=== PATIENT | female | born 1990 | race Caucasian/White ===

== ENCOUNTER 2019-02-21 04:20 | Emergency (ER) | payer OTHER ==
[~2019-02-21] VITALS: Ht 154.9 cm; Wt 95.3 kg
[~2019-02-21 04:20] MED LIST: CIPRO250 MG PO; LAC PO; NORCO1 TA2 PO
[2019-02-21 04:24] VITALS: Ht 154.9 cm; Wt 95.3 kg
[2019-02-21 05:22] VITALS: BP 132/93
== END 2019-02-21 05:22 | disposition home or self-care (01) ==
LOC: ED 04:20
DX: N39.0 Urinary tract infection, site not specified (principal); J45.909 Unspecified asthma, uncomplicated; Z87.19 Personal history of other diseases of the digestive system

== ENCOUNTER 2019-05-07 05:41 | Emergency (ER) | payer OTHER ==
[~2019-05-07] VITALS: Ht 154.9 cm; Wt 95.8 kg
[2019-05-07 05:53] VITALS: Ht 154.9 cm; Wt 95.8 kg
[2019-05-07 07:08] LABS: BASOPHIL % 1.1 % (0-2); PLATELET COUNT 365 x10^3mcL (130-400); RED CELL DISTRIBUTION WIDTH 13.4 % (11.5-14.5)
[2019-05-07 07:23] LABS: CARBON DIOXIDE 29.2 mmol/L (21-32); CHLORIDE SERUM 103 mmol/L (98-107); CREATININE SERUM 0.5 mg/dL (0.6-1.0); GFR1 > 60 mL/min; GLUCOSE SERUM 101 mg/dL (74-106); POTASSIUM SERUM 4.1 mmol/L (3.5-5.1); SODIUM SERUM 138 mmol/L (136-145)
[2019-05-07 07:27] LABS: ALKALINE PHOSPHATASE 72 U/L (46-116); ALT/SGPT 22 U/L (14-59); AMYLASE 50 U/L (25-115); AST/SGOT 15 U/L (15-37); BILIRUBIN TOTAL 0.3 mg/dL (0.20-1.00); TOTAL PROTEIN, SERUM 7.8 g/dL (6.4-8.2)
[2019-05-07 08:36] VITALS: BP 108/73
[2019-05-07 09:20] LABS: CALCIUM 9.2 mg/dL (8.5-10.1); LIPASE 146 IU/L (73-393)
[2019-05-07 09:23] LABS: ALBUMIN 3.7 g/dL (3.4-5.0)
== END 2019-05-07 08:36 | disposition home or self-care (01) ==
LOC: ED 05:41
PROVIDERS: Specialist
DX: N83.202 Unspecified ovarian cyst, left side (principal); N20.0 Calculus of kidney; J45.909 Unspecified asthma, uncomplicated; Z90.49 Acquired absence of other specified parts of digestive tract; Z98.890 Other specified postprocedural states
CPT/HCPCS: J1885; J2405; J3010; J7030

== ENCOUNTER 2019-12-23 06:03 | Emergency (ER) | payer OTHER ==
[~2019-12-23] VITALS: Ht 154.9 cm; Wt 99.1 kg
[2019-12-23 06:14] VITALS: Ht 154.9 cm; Wt 99.1 kg
[2019-12-23 07:07] LABS: CALCIUM 8.6 mg/dL (8.5-10.1); CARBON DIOXIDE 26.3 mmol/L (21-32); CHLORIDE SERUM 103 mmol/L (98-107); CREATININE SERUM 0.6 mg/dL (0.6-1.0); GFR1 > 60 mL/min; GLUCOSE SERUM 108 mg/dL (74-106); POTASSIUM SERUM 3.7 mmol/L (3.5-5.1); SODIUM SERUM 139 mmol/L (136-145)
[2019-12-23 07:27] LABS: ALBUMIN 3.5 g/dL (3.4-5.0); ALKALINE PHOSPHATASE 67 U/L (46-116); ALT/SGPT 29 U/L (14-59); AST/SGOT 11 U/L (15-37); BASOPHIL % 0.2 % (0-2); BILIRUBIN TOTAL 0.3 mg/dL (0.20-1.00); LIPASE 159 IU/L (73-393); PLATELET COUNT 343 x10^3mcL (130-400); TOTAL PROTEIN, SERUM 7.4 g/dL (6.4-8.2)
[2019-12-23 08:11] VITALS: BP 111/70
== END 2019-12-23 08:11 | disposition home or self-care (01) ==
LOC: ED 06:03
PROVIDERS: Emergency Medicine
DX: N20.0 Calculus of kidney (principal); J45.909 Unspecified asthma, uncomplicated; Z90.49 Acquired absence of other specified parts of digestive tract; Z98.890 Other specified postprocedural states
CPT/HCPCS: J1885; J2270; J2405

== ENCOUNTER 2020-02-26 07:30 | Emergency (ER) | payer OTHER ==
[2020-02-26 07:41] VITALS: Ht 154.9 cm
[2020-02-26 08:40] LABS: BASOPHIL % 0.2 % (0-2); PLATELET COUNT 359 x10^3mcL (130-400); RED CELL DISTRIBUTION WIDTH 13.3 % (11.5-14.5)
[2020-02-26 08:46] LABS: microscopic required? YES; urine erythrocyte 3+ (NEGATIVE)
[2020-02-26 08:51] LABS: CALCIUM 8.9 mg/dL (8.5-10.1); CARBON DIOXIDE 30.4 mmol/L (21-32); CHLORIDE SERUM 103 mmol/L (98-107); CREATININE SERUM 0.6 mg/dL (0.6-1.0); GFR1 > 60 mL/min; GLUCOSE SERUM 118 mg/dL (74-106); SODIUM SERUM 138 mmol/L (136-145)
[2020-02-26 08:59] LABS: ALBUMIN 3.5 g/dL (3.4-5.0); ALKALINE PHOSPHATASE 69 U/L (46-116); ALT/SGPT 26 U/L (14-59); AST/SGOT 11 U/L (15-37); BILIRUBIN TOTAL 0.3 mg/dL (0.20-1.00); LIPASE 112 IU/L (73-393); TOTAL PROTEIN, SERUM 7.4 g/dL (6.4-8.2)
[2020-02-26 12:10] VITALS: BP 136/78
== END 2020-02-26 12:10 | disposition home or self-care (01) ==
LOC: ED 07:30
DX: N20.0 Calculus of kidney (principal); N39.0 Urinary tract infection, site not specified; J45.909 Unspecified asthma, uncomplicated; Z90.49 Acquired absence of other specified parts of digestive tract; Z98.890 Other specified postprocedural states
CPT/HCPCS: J0696; J1885; J2405

== ENCOUNTER 2020-03-29 23:09 | Inpatient (IN) | payer OTHER ==
[~2020-03-29] VITALS: Ht 157.5 cm; Wt 96.6 kg
[2020-03-29 23:16] VITALS: Ht 157.5 cm; Wt 96.6 kg
[2020-03-30 01:07] LABS: BASOPHIL % 0.1 % (0-2); PLATELET COUNT 354 x10^3mcL (130-400); RED CELL DISTRIBUTION WIDTH 13.4 % (11.5-14.5)
[2020-03-30 01:17] LABS: CALCIUM 9.3 mg/dL (8.5-10.1); CARBON DIOXIDE 29.6 mmol/L (21-32); CHLORIDE SERUM 101 mmol/L (98-107); CREATININE SERUM 0.6 mg/dL (0.6-1.0); GFR1 > 60 mL/min; GLUCOSE SERUM 95 mg/dL (74-106); POTASSIUM SERUM 3.9 mmol/L (3.5-5.1); SODIUM SERUM 136 mmol/L (136-145)
[2020-03-30 01:22] LABS: ALBUMIN 3.8 g/dL (3.4-5.0); ALKALINE PHOSPHATASE 76 U/L (46-116); ALT/SGPT 67 U/L (14-59); AST/SGOT 20 U/L (15-37); BILIRUBIN TOTAL 0.38 mg/dL (0.20-1.00); TOTAL PROTEIN, SERUM 7.9 g/dL (6.4-8.2)
[2020-03-30 03:42] VITALS: BP 131/87
[2020-03-30 04:39] LABS: UA SPECIFIC GRAVITY 1.015 (1.005-1.035); microscopic required? YES; urine erythrocyte 3+ (NEGATIVE)
[2020-03-30 04:47] LABS: AMPHETAMINE QUAL UR NONE DETECTED (See below)
[2020-03-30 07:52] LABS: CALCIUM 8.6 mg/dL (8.5-10.1); CARBON DIOXIDE 26.9 mmol/L (21-32); CHLORIDE SERUM 103 mmol/L (98-107); CREATININE SERUM 0.6 mg/dL (0.6-1.0); GFR1 > 60 mL/min; GLUCOSE SERUM 85 mg/dL (74-106); POTASSIUM SERUM 3.7 mmol/L (3.5-5.1); SODIUM SERUM 137 mmol/L (136-145)
[2020-03-30 08:05] LABS: BASOPHIL % 0.4 % (0-2); PLATELET COUNT 265 x10^3mcL (130-400)
[2020-03-30 08:06] LABS: RED CELL DISTRIBUTION WIDTH 20.7 % (11.5-14.5)
[2020-03-30 08:07] LABS: CHOLESTEROL/HDL RATIO 3.4
[2020-03-30 08:14] VITALS: BP 112/63
[2020-03-30 12:40] VITALS: BP 101/58
[2020-03-30 16:30] VITALS: BP 93/45
[2020-03-30 21:55] VITALS: BP 95/55
[2020-03-31 05:08] VITALS: BP 101/57
[2020-03-31 07:18] LABS: ALKALINE PHOSPHATASE 59 U/L (46-116); ALT/SGPT 48 U/L (14-59); AST/SGOT 20 U/L (15-37); BILIRUBIN TOTAL 0.6 mg/dL (0.20-1.00); CALCIUM 8.3 mg/dL (8.5-10.1); CARBON DIOXIDE 27.1 mmol/L (21-32); CHLORIDE SERUM 105 mmol/L (98-107); CREATININE SERUM 0.6 mg/dL (0.6-1.0); GFR1 > 60 mL/min; GLUCOSE SERUM 65 mg/dL (74-106); POTASSIUM SERUM 3.7 mmol/L (3.5-5.1); SODIUM SERUM 138 mmol/L (136-145); TOTAL PROTEIN, SERUM 6.6 g/dL (6.4-8.2)
[2020-03-31 07:22] LABS: ALBUMIN 3.1 g/dL (3.4-5.0)
[2020-03-31 07:23] LABS: BASOPHIL % 0.1 % (0-2); PLATELET COUNT 281 x10^3mcL (130-400); RED CELL DISTRIBUTION WIDTH 13.4 % (11.5-14.5)
[2020-03-31 09:00] VITALS: BP 103/53
[2020-03-31 16:41] VITALS: BP 112/73
[2020-03-31 20:48] VITALS: BP 104/63
[2020-04-01 05:54] VITALS: BP 119/71
[2020-04-01 05:59] VITALS: BP 96/59
[2020-04-01 06:39] LABS: BASOPHIL % 0.3 % (0-2); PLATELET COUNT 291 x10^3mcL (130-400); RED CELL DISTRIBUTION WIDTH 13.5 % (11.5-14.5)
[2020-04-01 07:11] LABS: ALKALINE PHOSPHATASE 60 U/L (46-116); ALT/SGPT 56 U/L (14-59); AST/SGOT 26 U/L (15-37); BILIRUBIN TOTAL 0.5 mg/dL (0.20-1.00); CALCIUM 8.7 mg/dL (8.5-10.1); CARBON DIOXIDE 28.7 mmol/L (21-32); CHLORIDE SERUM 102 mmol/L (98-107); CREATININE SERUM 0.5 mg/dL (0.6-1.0); GFR1 > 60 mL/min; GLUCOSE SERUM 78 mg/dL (74-106); POTASSIUM SERUM 3.6 mmol/L (3.5-5.1); SODIUM SERUM 136 mmol/L (136-145); TOTAL PROTEIN, SERUM 6.7 g/dL (6.4-8.2)
[2020-04-01 07:24] LABS: ALBUMIN 3.1 g/dL (3.4-5.0)
[2020-04-01 08:01] VITALS: BP 103/68
[2020-04-01 12:30] VITALS: BP 106/61
[2020-04-01] MEDS ORDERED: APAP/HYDROCODON1 T13 PO (15:33)
[2020-04-01] MEDS ORDERED: DIT5 PO (15:37)
[2020-04-01 16:03] VITALS: BP 106/61
[2020-04-01 16:12] VITALS: BP 103/62
== END 2020-04-01 16:34 | disposition home or self-care (01) | DRG 466 ==
LOC: ED 23:09 → MU 03-30 01:46
PROVIDERS: Emergency Medicine; Urology; ADMIT Family Medicine; ATTEND Family Medicine
PROC: BT1D1ZZ Fluoroscopy of Right Kidney, Ureter and Bladder using Low Osmolar Contrast (ICD-10-PCS; 2020-03-31)
PROC: 0T768DZ Dilation of Right Ureter with Intraluminal Device, Via Natural or Artificial Opening Endoscopic (ICD-10-PCS; principal; 2020-03-31 14:00)
DX: T83.123A Displacement of other urinary stents, initial encounter (principal); N13.30 Unspecified hydronephrosis; J45.909 Unspecified asthma, uncomplicated; D72.829 Elevated white blood cell count, unspecified; M45.9 Ankylosing spondylitis of unspecified sites in spine; Y83.8 Other surgical procedures as the cause of abnormal reaction of the patient, or of later complication, without mention of misadventure at the time of the procedure; Z20.828 Contact with and (suspected) exposure to other viral communicable diseases; Y73.8 Miscellaneous gastroenterology and urology devices associated with adverse incidents, not elsewhere classified; Z98.891 History of uterine scar from previous surgery; Z90.49 Acquired absence of other specified parts of digestive tract; Z87.442 Personal history of urinary calculi; Z83.3 Family history of diabetes mellitus; Z84.89 Family history of other specified conditions; Y92.89 Other specified places as the place of occurrence of the external cause; Z79.899 Other long term (current) drug therapy; Z79.01 Long term (current) use of anticoagulants; Z79.891 Long term (current) use of opiate analgesic
CPT/HCPCS: 82962; 83880; C2625; C9113; G0378; J0696; J1885; J2250; J3010; J3490; J7030; Q0092; Q9967

== ENCOUNTER 2020-08-28 17:28 | Emergency (ER) | payer OTHER ==
[~2020-08-28] VITALS: Ht 154.9 cm; Wt 93.9 kg
[~2020-08-28 17:28] MED LIST changes: +APAP/HYDROCODON1 T13 PO; +DIT5 PO
[2020-08-28 17:37] VITALS: Ht 154.9 cm; Wt 93.9 kg
[2020-08-28 20:00] VITALS: BP 156/87
== END 2020-08-28 20:00 | disposition home or self-care (01) ==
LOC: ED 17:28
DX: S80.212A Abrasion, left knee, initial encounter (principal); S80.211A Abrasion, right knee, initial encounter; M25.511 Pain in right shoulder; M25.531 Pain in right wrist; J45.909 Unspecified asthma, uncomplicated; Z98.890 Other specified postprocedural states; Z90.49 Acquired absence of other specified parts of digestive tract; W01.0XXA Fall on same level from slipping, tripping and stumbling without subsequent striking against object, initial encounter; Y93.89 Activity, other specified; Y92.89 Other specified places as the place of occurrence of the external cause; Y99.8 Other external cause status
CPT/HCPCS: J1885